=== PATIENT | female | born 1965 | race Caucasian/White ===

== ENCOUNTER 2016-06-30 05:09 | Inpatient (IN) | payer MEDICAID, OTHER ==
[~2016-06-30] VITALS: Ht 165.1 cm; Wt 55.0 kg
[~2016-06-30 05:09] MED LIST: CHLO25 PO; DEPA500T3; SERO200T PO; SUBO8MIS SL; TRAM50 PO
[2016-06-30] MEDS ORDERED: CHLO25CA2 PO (05:26)
[2016-06-30] MEDS ORDERED: DIVA250ER PO (05:26)
[2016-06-30] MEDS ORDERED: DIAZ2 PO (05:26)
[2016-06-30] MEDS ORDERED: SUBO8MIS SL (05:26)
[2016-06-30] MEDS ORDERED: SERO200T PO (05:26)
[2016-06-30 05:27] VITALS: BP 134/72; PULSE 112; RESP 24; TEMP 98.9; O2SAT 99
[2016-06-30 05:46] LABS: AUTOMATED NEUTROPHIL # 9.6 TH/MM3 (1.8-7.7); BASOPHIL % 0.2 % (0.0-2.0); EOSINOPHIL % 0.2 % (0.0-4.0); HEMATOCRIT 36.5 % (35.0-46.0); HEMO FLAGS DIFF FINAL; LYMPH % 14.1 % (9.0-44.0); LYMPHOCYTE # 1.8 TH/MM3 (1.0-4.8); MEAN CORPUSCULAR HEMOGLOBIN 32.4 PG (27.0-34.0); MEAN CORPUSCULAR HGB CONC 35.6 % (32.0-36.0); MONO % 8.4 % (0.0-8.0); NEUT % 77.1 % (16.0-70.0); PLATELET COUNT 371 TH/MM3 (150-450); RED BLOOD COUNT 4.01 MIL/MM3 (4.00-5.30); RED CELL DISTRIBUTION WIDTH 12.1 % (11.6-17.2); WHITE BLOOD COUNT 12.5 TH/MM3 (4.0-11.0)
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
[2016-06-30 06:04] LABS: ANION GAP 15 MEQ/L (5-15)
[2016-06-30 06:07] LABS: ALKALINE PHOSPHATASE 70 U/L (45-117); ALT (GPT) 36 U/L (10-53); AST (GOT) 48 U/L (15-37); BICARBONATE 22.3 MEQ/L (21.0-32.0); BLOOD UREA NITROGEN 25 MG/DL (7-18); CHLORIDE 103 MEQ/L (98-107); GLOMERULAR FILTRATION RATE 39 ML/MIN (>89); SODIUM (NA) 140 MEQ/L (136-145); TOTAL BILIRUBIN ADULT 1.1 MG/DL (0.2-1.0)
[2016-06-30 06:07] LABS: AMPHETAMINE, URINE NEG (NEG); BARBITURATES, URINE NEG (NEG); COCAINE, URINE POS (NEG)
[2016-06-30] MEDS ORDERED: SODIUM CHLOR 0.9% 1000 ML INJ 1,000 ML IV SCH ×2 (06:19)
[2016-06-30 07:52] VITALS: BP 128/77; PULSE 76; RESP 16; TEMP 97.8; O2SAT 99
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
[2016-06-30 10:53] VITALS: BP 128/81; TEMP 97.8
[2016-06-30] MEDS ORDERED: ACETAMINOPHEN 325 MG TAB PO PRN (11:00)
[2016-06-30] MEDS ORDERED: LORazepam 1 MG TAB PO PRN (11:00)
[2016-06-30] MEDS ORDERED: ALUMINUM/MAGNESIUM/SIMETH 30 ML CUP PO PRN (11:00)
[2016-06-30] MEDS ORDERED: LORazepam 2 MG/ML VIAL IM PRN (11:00)
[2016-06-30] MEDS ORDERED: MAGNESIUM HYDROXIDE SUSP 30 ML CUP PO PRN (11:00)
[2016-06-30] MEDS: QUEtiapine FUMARATE 300 MG TAB PO SCH ×3 (12:00→21:00)
[2016-06-30 12:06] VITALS: BP 124/88; PULSE 116; RESP 18; TEMP 97.8; O2SAT 99
[2016-06-30] MEDS ORDERED: QUEtiapine FUMARATE 300 MG TAB PO SCH (21:00)
[2016-07-01 06:00] VITALS: BP 105/88; PULSE 88; RESP 18; TEMP 97.6; O2SAT 97
[2016-07-01 07:42] LABS: ANION GAP 7 MEQ/L (5-15); BLOOD UREA NITROGEN 11 MG/DL (7-18); CHLORIDE 107 MEQ/L (98-107); GLOMERULAR FILTRATION RATE 95 ML/MIN (>89); HDL CHOLESTEROL 84.1 MG/DL (40.0-60.0); LDL CHOLESTEROL 54 MG/DL (0-99); POTASSIUM 3.7 MEQ/L (3.5-5.1); SODIUM (NA) 141 MEQ/L (136-145)
[2016-07-01] MEDS: QUEtiapine FUMARATE 300 MG TAB PO SCH (08:50)
[2016-07-01] MEDS: REMOVE OLD PATCH T-DERMAL SCH ×2 (08:51→09:41)
[2016-07-01] MEDS ORDERED: NICOTINE 21 MG/24 HR PATCH T-DERMAL SCH (09:00)
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
[2016-07-01 16:07] LABS: HEMOGLOBIN A1a 1.1 %; HEMOGLOBIN A1b 0.7 %; HEMOGLOBIN F 0.6 %; HEMOGLOBIN P3 3.4 %
== END 2016-07-01 16:45 | disposition left against medical advice (07) | DRG 894 ==
LOC: NEDAMB 05:09 → NEDA 10:21 → H270 11:06
PROVIDERS: ADMIT Psychiatry & Neurology Psychiatry; ATTEND Psychiatry & Neurology Psychiatry
DX: F14.14 Cocaine abuse with cocaine-induced mood disorder (principal); F31.9 Bipolar disorder, unspecified; Z72.0 Tobacco use
CPT/HCPCS: 80048; 80053; 80061; 80164; 80307; 83036; 85025; 96360; J7030

== ENCOUNTER 2017-07-06 15:07 | Emergency (ER) | payer MEDICAID, OTHER ==
[~2017-07-06 15:07] MED LIST changes: -CHLO25 PO; -DEPA500T3; +DIVA250ER PO; -TRAM50 PO
[2017-07-06 15:22] VITALS: BP 102/66; PULSE 127; RESP 20; TEMP 98.2; TEMP 98.5; O2SAT 95
[2017-07-06] MEDS ORDERED: SODIUM CHLOR 0.9% 1000 ML INJ 1,000 ML IV ONE ×2 (15:50→18:45)
[2017-07-06] MEDS ORDERED: ACETAMINOPHEN/HYDROcodone 325 MG/7.5 MG TAB PO ONE (16:00)
[2017-07-06] MEDS ORDERED: DALBAVANCIN INJ 1,500 MG in DEXTROSE 5% IN WATE 500 ML INJ 500 ML IV STA ×2 (16:50)
[2017-07-06] MEDS ORDERED: ASP: Does not meet inpatient admission criteria OTHER ONE (17:00)
[2017-07-06] MEDS ORDERED: ASP: Location of Dalbavancin administration OTHER ONE (17:00)
[2017-07-06] MEDS ORDERED: ASP: Only reason for admit - IV antibiotics OTHER ONE (17:00)
[2017-07-06] MEDS ORDERED: PHARMACY INFORMATION XX ONE (17:00)
[2017-07-06] MEDS ORDERED: ASP: No known hypersensitivity to Vanco, Telavancin, Dalbavancin OTHER ONE (17:00)
--- NOTE | 2017-07-06 17:11 | PD ---
HPI Chief Complaint: Skin Problem Time Seen by Provider: 15:27 Travel History International Travel<30 days: No Contact w/Intl Traveler<30days: No Traveled to known affect area: No History of Present Illness HPI Patient is a 51-year-old female presenting to the emergency department for evaluation of left lower leg redness and swelling. Patient reports using IV drugs 1 month ago, she states she injected methamphetamines and heroin. She denies using drugs since that time. After that injection she reported having cellulitis in her right lower leg, this was treated in [place]. The symptoms this time have been ongoing for 3 days. Symptom onset was gradual, getting progressively worse. She reports her pain is a 7 out of 10. She states is throbbing and aching. There are no alleviating factors, pain is exacerbated with movement, touch and ambulation. Patient reports that she is an alcoholic, she took several shots of alcohol this morning prior to coming to the emergency department. PFSH Past Medical History Arthritis: Yes Asthma: Yes GERD: Yes Headaches: Yes Neurologic: Yes Psychiatric: Yes (Bipolar) Respiratory: Yes Seizures: Yes Ulcer: No Past Surgical History Body Medical Devices: BREAST IMPLANTS Tonsillectomy: Yes Other Surgery: Yes (BILATERAL MASECTOMY, AUGMENTATION) Social History Alcohol Use: Yes (States she is an alcoholic) Tobacco Use: Yes (1/2PPD) Substance Use: Yes (Methamphetamines, heroin) Allergies-Medications (Allergen,Severity, Reaction): Coded Allergies: No Known Allergies (Unverified Adverse Reaction, Unknown, 07/06/17) Reported Meds & Prescriptions Reported Meds & Active Scripts Active Reported Lamotrigine 200 Mg Tab 200 Mg PO DAILY Depakote ER (Divalproex Sodium) 500 Mg Bri 1,000 Mg PO DAILY Seroquel (Quetiapine Fumarate) 200 Mg Tab 200 Mg PO HS Review of Systems Except as stated in HPI: all other systems reviewed are Neg General / Constitutional: No: Fever, Chills Cardiovascular: No: Chest Pain or Discomfort Respiratory: No: Shortness of Breath Gastrointestinal: No: Nausea, Abdominal Pain Musculoskeletal: Positive: Edema, Pain Skin: Positive Change in Pigmentation Physical Exam Narrative GENERAL: Well-developed, well-nourished, alert, intoxicated appearing female. Resenting in no acute distress. SKIN: Warm and dry. Edema and erythema noted to the left lower leg and foot. Erythema starts approximately 10 cm below the knee on the left. Edema is more localized to the left ankle and foot. HEAD: Atraumatic. Normocephalic. EYES: Pupils equal and round. No scleral icterus. No injection or drainage. ENT: No nasal bleeding or discharge. Mucous membranes pink and moist. NECK: Trachea midline. No JVD. CARDIOVASCULAR: Tachycardic RESPIRATORY: No accessory muscle use. Clear to auscultation. Breath sounds equal bilaterally. GASTROINTESTINAL: Abdomen soft, non-tender, nondistended. Hepatic and splenic margins not palpable. MUSCULOSKELETAL: Extremities without clubbing, cyanosis, or edema. No obvious deformities. NEUROLOGICAL: Awake and alert. No obvious cranial nerve deficits. Motor grossly within normal limits. Five out of 5 muscle strength in the arms and legs. Normal speech. PSYCHIATRIC: Appropriate mood and affect; insight and judgment normal. Data Data Last Documented VS Vital Signs Date Time Temp Pulse Resp B/P (MAP) Pulse Ox O2 Delivery O2 Flow Rate FiO2 07/06/17 19:30 83 16 111/75 (87) 98 Room Air 07/06/17 15:22 98.2 Orders Orders Sepsis Workup Initiated (07/06/17 ) Complete Blood Count With Diff (07/06/17 15:50) Comprehensive Metabolic Panel (07/06/17 15:50) Lactic Acid Sepsis Protocol (07/06/17 15:50) Urinalysis - C+S If Indicated (07/06/17 15:50) Blood Culture (07/06/17 15:50) Ecg Monitoring (07/06/17 15:50) Iv Access Insert/Monitor (07/06/17 15:50) Oximetry (07/06/17 15:50) Sodium Chlor 0.9% 1000 Ml Inj (Ns 1000 M (07/06/17 15:50) Acetamin-Hydrocod 325-7.5 Mg ([place] 7.5 (07/06/17 16:00) Drug Screen, Random Urine (07/06/17 15:51) Case Management Consult (07/06/17 ) Asp:No Reaction To Dalbav/Vanc (Asp Crit (07/06/17 17:00) Asp: Does Not Meet Inpt Admit (Asp Crit: (07/06/17 17:00) Asp: Iv Antibiotics Admit Only (Asp Crit (07/06/17 17:00) Asp: Location Of Dalbav Admin (Asp Crit: (07/06/17 17:00) [facility] Information ([facility] (07/06/17 17:00) Dalbavancin Inj (Dalvance Inj) (07/06/17 16:50) Elevate (07/06/17 16:50) Document (07/06/17 16:50) Measurements (07/06/17 16:50) Us Leg Venous Doppler (07/06/17 ) Vascular Access Team Consult/P PRN (07/06/17 17:36) Vascular Poc Ultrasound (07/06/17 ) Acetamin-Codeine 300-30 Mg (Tylenol-Code (07/06/17 17:45) Sodium Chlor 0.9% 1000 Ml Inj (Ns 1000 M (07/06/17 18:45) Lorazepam Inj (Ativan Inj) (07/06/17 19:30) Labs Laboratory Tests Test 07/06/17 17:00 07/06/17 17:08 07/06/17 18:04 Lactic Acid Level 1.5 mmol/L Blood Urea Nitrogen 7 MG/DL Creatinine 0.66 MG/DL Random Glucose 93 MG/DL Total Protein 7.0 GM/DL Albumin 3.1 GM/DL Calcium Level 8.7 MG/DL Alkaline Phosphatase 82 U/L Aspartate Amino Transf (AST/SGOT) 32 U/L Alanine Aminotransferase (ALT/SGPT) 23 U/L Total Bilirubin 0.4 MG/DL Sodium Level 139 MEQ/L Potassium Level 4.3 MEQ/L Chloride Level 102 MEQ/L Carbon Dioxide Level 27.3 MEQ/L Anion Gap 10 MEQ/L Estimat Glomerular Filtration Rate 95 ML/MIN White Blood Count 6.6 TH/MM3 Red Blood Count 4.03 MIL/MM3 Hemoglobin 12.8 GM/DL Hematocrit 37.1 % Mean Corpuscular Volume 92.1 FL Mean Corpuscular Hemoglobin 31.8 PG Mean Corpuscular Hemoglobin Concent 34.6 % Red Cell Distribution Width 12.9 % Platelet Count 235 TH/MM3 Mean Platelet Volume 7.3 FL Neutrophils (%) (Auto) 65.8 % Lymphocytes (%) (Auto) 21.3 % Monocytes (%) (Auto) 10.3 % Eosinophils (%) (Auto) 2.4 % Basophils (%) (Auto) 0.2 % Neutrophils # (Auto) 4.3 TH/MM3 Lymphocytes # (Auto) 1.4 TH/MM3 Monocytes # (Auto) 0.7 TH/MM3 Eosinophils # (Auto) 0.2 TH/MM3 Basophils # (Auto) 0.0 TH/MM3 CBC Comment DIFF FINAL Differential Comment MDM Medical Decision Making Medical Screen Exam Complete: Yes Emergency Medical Condition: Yes Interpretation(s) Vital Signs Date Time Temp Pulse Resp B/P (MAP) Pulse Ox O2 Delivery O2 Flow Rate FiO2 07/06/17 19:30 83 16 111/75 (87) 98 Room Air 07/06/17 17:23 79 16 95/51 (66) 99 07/06/17 15:22 98.2 127 20 102/66 (78) 95 Last Impressions Lower Extremity Ultrasound 07/06/17 0000 Signed Impressions: Service Date/Time: Thursday, July 06, 2017 18:45 - CONCLUSION: No venous thrombosis of the left lower extremity. Dain Vinson MD Laboratory Tests Test 07/06/17 17:00 07/06/17 17:08 07/06/17 18:04 Lactic Acid Level 1.5 mmol/L Blood Urea Nitrogen 7 MG/DL Creatinine 0.66 MG/DL Random Glucose 93 MG/DL Total Protein 7.0 GM/DL Albumin 3.1 GM/DL Calcium Level 8.7 MG/DL Alkaline Phosphatase 82 U/L Aspartate Amino Transf (AST/SGOT) 32 U/L Alanine Aminotransferase (ALT/SGPT) 23 U/L Total Bilirubin 0.4 MG/DL Sodium Level 139 MEQ/L Potassium Level 4.3 MEQ/L Chloride Level 102 MEQ/L Carbon Dioxide Level 27.3 MEQ/L Anion Gap 10 MEQ/L Estimat Glomerular Filtration Rate 95 ML/MIN White Blood Count 6.6 TH/MM3 Red Blood Count 4.03 MIL/MM3 Hemoglobin 12.8 GM/DL Hematocrit 37.1 % Mean Corpuscular Volume 92.1 FL Mean Corpuscular Hemoglobin 31.8 PG Mean Corpuscular Hemoglobin Concent 34.6 % Red Cell Distribution Width 12.9 % Platelet Count 235 TH/MM3 Mean Platelet Volume 7.3 FL Neutrophils (%) (Auto) 65.8 % Lymphocytes (%) (Auto) 21.3 % Monocytes (%) (Auto) 10.3 % Eosinophils (%) (Auto) 2.4 % Basophils (%) (Auto) 0.2 % Neutrophils # (Auto) 4.3 TH/MM3 Lymphocytes # (Auto) 1.4 TH/MM3 Monocytes # (Auto) 0.7 TH/MM3 Eosinophils # (Auto) 0.2 TH/MM3 Basophils # (Auto) 0.0 TH/MM3 CBC Comment DIFF FINAL Differential Comment Differential Diagnosis Sepsis versus cellulitis versus metabolic abnormality versus substance abuse versus other Narrative Course Patient is a 51-year-old female who presented to the emerge from for evaluation of left lower extremity cellulitis. She reports a history of IV drug use but has not used in a month. Patient is tachycardic on arrival, likely secondary to pain. Labs and imaging ordered and pending. Ultrasound is negative for DVT , CBC is unremarkable, chemistry with no acute findings, lactic acid is 1.5. Blood cultures obtained, patient was given Dalvance. She was advised to follow- up at the [facility]. She was also encouraged to keep extremity elevated, apply cool compresses, take ibuprofen as needed and as directed for pain. Patient was strongly advised to avoid any further IV drug use. Patient verbalized understanding of instructions. Patient stable for discharge. Diagnosis Primary Impression: Cellulitis Qualified Codes: L03.116 - Cellulitis of left lower limb Referrals: [facility] They accept 12 same day appointments daily, you will need to call at 8 am to secure an appointment. Patient Instructions: Cellulitis (ED), General Instructions Additional Instructions: Follow-up at the [facility] Keep extremity elevated, apply cool compress Return to emergency department for any new or worsening symptoms Avoid any IV drug use Med/Other Pt SpecificInfo: Prescription(s) given, No Change to Meds Scripts Ibuprofen (Ibuprofen) 800 Mg Tab 800 MG PO Q6HR Y for PAIN, #40 TAB 0 Refills Prov: Chelita Burgos 07/06/17 Disposition: 01 DISCHARGE HOME Condition: Stable Chelita Burgos Jul 06, 2017 17:11
[2017-07-06 17:23] VITALS: BP 95/51; PULSE 79; RESP 16; O2SAT 99
[2017-07-06] MEDS ORDERED: ACETAMINOPHEN/CODEINE 300 MG/30 MG TAB PO ONE (17:45)
[2017-07-06 17:47] LABS: ALKALINE PHOSPHATASE 82 U/L (45-117); TOTAL BILIRUBIN ADULT 0.4 MG/DL (0.2-1.0)
[2017-07-06 17:50] LABS: ALBUMIN 3.1 GM/DL (3.4-5.0); ALT (GPT) 23 U/L (10-53); AST (GOT) 32 U/L (15-37); BICARBONATE 27.3 MEQ/L (21.0-32.0); BLOOD UREA NITROGEN 7 MG/DL (7-18); CALCIUM 8.7 MG/DL (8.5-10.1); CHLORIDE 102 MEQ/L (98-107); CREATININE 0.66 MG/DL (0.50-1.00); GLOMERULAR FILTRATION RATE 95 ML/MIN (>89); GLUCOSE,RANDOM 93 MG/DL (74-106); SODIUM (NA) 139 MEQ/L (136-145)
[2017-07-06 18:44] LABS: AUTOMATED NEUTROPHIL # 4.3 TH/MM3 (1.8-7.7); BASOPHIL % 0.2 % (0.0-2.0); EOSINOPHIL # 0.2 TH/MM3 (0-0.4); EOSINOPHIL % 2.4 % (0.0-4.0); HEMATOCRIT 37.1 % (35.0-46.0); HEMOGLOBIN 12.8 GM/DL (11.6-15.3); LYMPH % 21.3 % (9.0-44.0); LYMPHOCYTE # 1.4 TH/MM3 (1.0-4.8); MEAN CELL VOLUME 92.1 FL (80.0-100.0); MEAN CORPUSCULAR HEMOGLOBIN 31.8 PG (27.0-34.0); MEAN CORPUSCULAR HGB CONC 34.6 % (32.0-36.0); MEAN PLATELET VOLUME 7.3 FL (7.0-11.0); MONO % 10.3 % (0.0-8.0); MONOCYTE # 0.7 TH/MM3 (0-0.9); NEUT % 65.8 % (16.0-70.0); PLATELET COUNT 235 TH/MM3 (150-450); RED BLOOD COUNT 4.03 MIL/MM3 (4.00-5.30); RED CELL DISTRIBUTION WIDTH 12.9 % (11.6-17.2); WHITE BLOOD COUNT 6.6 TH/MM3 (4.0-11.0)
[2017-07-06] MEDS ORDERED: LAMO200T PO (18:45)
[2017-07-06] MEDS ORDERED: DEPA500T3 PO (18:45)
[2017-07-06 19:30] VITALS: BP 111/75; PULSE 83; RESP 16; O2SAT 98
[2017-07-06] MEDS ORDERED: LORazepam 2 MG/ML VIAL IV PUSH ONE (19:30)
--- NOTE | 2017-07-06 19:33 | RADRPT ---
EXAM DATE/TIME: 07/06/2017 18:45 [facility] COMPARISON: No previous studies available for comparison. INDICATIONS : Left leg redness and swelling. MEDICAL HISTORY : Gastroesophageal reflux disease. Seizures. Hepatitis C. Head trauma. Headaches. Asthma. Arthritis. Bipolar disorder. IVDU. Substance abuse. ETOH abuse. SURGICAL HISTORY : Tonsillectomy. Mastectomy, bilateral. Breast augmentation. ENCOUNTER: Initial ACUITY: 3 days PAIN SCORE: 10/10 LOCATION: Left leg. TECHNIQUE: Venous ultrasound of the leg was performed from the inguinal ligament to the proximal calf. Real-dyllan e, color Doppler and spectral tracing, compression and augmentation techniques were used. FINDINGS: There is normal compressibility of the deep venous system from the inguinal region to the proximal ca lf. No echogenic clot is seen in the lumen of the common femoral, femoral, popliteal, and posterior tibial veins. There is a normal response of the venous system to proximal and distal augmentation an d respiration. CONCLUSION: No venous thrombosis of the left lower extremity. Dain Vinson MD on July 06, 2017 at 19:30 Board Certified Radiologist. This report was verified electronically.
[2017-07-06] MEDS ORDERED: IBUP1TAB7 PO (20:36)
== END 2017-07-06 20:50 | disposition home or self-care (01) ==
LOC: NEPC 15:07
DX: L03.116 Cellulitis of left lower limb (principal); F10.20 Alcohol dependence, uncomplicated; J45.909 Unspecified asthma, uncomplicated; F11.10 Opioid abuse, uncomplicated; F15.10 Other stimulant abuse, uncomplicated; Z72.0 Tobacco use; R00.0 Tachycardia, unspecified
CPT/HCPCS: 80053; 83605; 85025; 87040; 93971; 96361; 96365; 96375; 99284; J0875; J2060; J7030; J7060